=== PATIENT | female | born 1945 | race Caucasian/White ===

== ENCOUNTER 2017-01-16 23:18 | Emergency (ER) | payer BC ==
[~2017-01-16] VITALS: Ht 160 cm; Wt 93.0 kg
[~2017-01-16 23:18] MED LIST: AMLO2.5T2 PO; FLO110 INH; FLUT1DIS5; LEVO25TA7 PO; METO-442 PO; PRAV40TA PO; PRO40 PO
[2017-01-16 23:20] VITALS: BP_SYST 105
[2017-01-16] MEDS: ASPIRIN 325 MG TABLET PO ONE (23:39)
[2017-01-16 23:52] LABS: BASOPHILS % (AUTO) 0.5 % (0.0-2.0); EOSINOPHILS # (AUTO) 0.2 K/uL (0.0-0.4); EOSINOPHILS % (AUTO) 2.7 % (0.0-4.0); HEMATOCRIT 37.8 % (36-48); HEMOGLOBIN 12.9 g/dL (12.0-16.0); LYMPHOCYTES # (AUTO) 3.6 K/uL (1.0-5.5); LYMPHOCYTES % (AUTO) 40.6 % (20.5-51.5); MEAN CORPUSCULAR HEMOGLOBIN 31 pg (27-31); MEAN CORPUSCULAR HGB CONC 34 % (32-36); MEAN CORPUSCULAR VOLUME 90 fL (79.0-98.0); MONOCYTES # (AUTO) 0.6 K/uL (0.0-1.0); MONOCYTES % (AUTO) 7.1 % (1.7-9.3); NEUTROPHILS # (AUTO) 4.5 K/uL (1.8-7.7); NEUTROPHILS % (AUTO) 49.1 % (40.0-70.0); PLATELET COUNT (AUTO) 289 K/uL (130-430); RED BLOOD CELL COUNT(AUTO) 4.21 MIL/uL (4.2-6.2); RED CELL DISTRIBUTION WIDTH 12.3 % (9.0-15.0); WHITE BLOOD COUNT (AUTO) 8.9 K/uL (4.8-10.8)
[2017-01-17 00:06] LABS: ANION GAP 8 (5-15); CALCIUM 9.6 mg/dL (8.4-11.0); CHLORIDE 109 mmol/L (98-107); CREATININE 0.96 mg/dL (0.55-1.30); GLUCOSE 128 mg/dL (70-99); POTASSIUM 3.5 mmol/L (3.5-5.1); SODIUM SERUM 141 mmol/L (136-145); UREA NITROGEN, BLOOD 13 mg/dL (8-21)
[2017-01-17 00:11] LABS: ALANINE AMINOTRANSFERASE 20 U/L (12-78); ALBUMIN 3.6 g/dL (3.4-4.8); ASPARTATE AMINOTRANSFERASE 15 U/L (10-37); TOTAL BILIRUBIN 0.3 mg/dL (0.0-1.0); TOTAL PROTEIN, SERUM 6.9 g/dL (6.4-8.3)
[2017-01-17] MEDS: KETOROLAC TROMETHAMINE 60 MG/2 ML VIAL IM ONE (01:38)
[2017-01-17 01:50] VITALS: BP_SYST 108
[2017-01-17] MEDS: MAG HYDROX/AL HYDROX/SIMETH 30 ML, BELLADONNA ALKALOIDS/PHENOBARB 10 ML, LIDOCAINE VISC... PO ONE ×3 (01:59)
== END 2017-01-17 01:50 | disposition home or self-care (01) ==
LOC: SED 23:18
DX: M94.0 Chondrocostal junction syndrome [Tietze] (principal); E11.9 Type 2 diabetes mellitus without complications; I10 Essential (primary) hypertension; Z88.0 Allergy status to penicillin; Z88.5 Allergy status to narcotic agent
CPT/HCPCS: 36415; 71010; 80053; 82962; 84484; 85025; 93005; 96372; 99285; J1885

== ENCOUNTER 2017-02-14 13:26 | Outpatient (CLI) | payer OTHER | END 2017-02-14 18:58 | disposition home or self-care (01) | LOC: SRD 13:26 | PROVIDERS: ATTEND Internal Medicine | DX: M19.011 Primary osteoarthritis, right shoulder (principal); M75.21 Bicipital tendinitis, right shoulder; M65.331 Trigger finger, right middle finger; M19.041 Primary osteoarthritis, right hand | CPT/HCPCS: 73030; 73140-TC ==

== ENCOUNTER 2017-11-29 11:32 | Outpatient (CLI) | payer OTHER | END 2017-11-29 16:05 | disposition home or self-care (01) | LOC: SRD 11:32 | PROVIDERS: ATTEND Internal Medicine | DX: M47.892 Other spondylosis, cervical region (principal); M48.02 Spinal stenosis, cervical region | CPT/HCPCS: 72050-TC ==

== ENCOUNTER 2018-09-08 10:08 | Outpatient (CLI) | payer OTHER | END 2018-09-08 21:14 | disposition home or self-care (01) | LOC: SRD 10:08 | PROVIDERS: ATTEND Internal Medicine | DX: M17.0 Bilateral primary osteoarthritis of knee (principal); M19.042 Primary osteoarthritis, left hand; M19.041 Primary osteoarthritis, right hand ==

== ENCOUNTER 2019-07-13 13:43 | Outpatient (CLI) | payer OTHER | END 2019-07-13 21:02 | disposition home or self-care (01) | LOC: SRD 13:43 | PROVIDERS: ATTEND Internal Medicine | DX: M17.11 Unilateral primary osteoarthritis, right knee (principal); M19.022 Primary osteoarthritis, left elbow; M19.041 Primary osteoarthritis, right hand; M19.042 Primary osteoarthritis, left hand | CPT/HCPCS: 73564 ==

== ENCOUNTER 2020-08-04 20:36 | Emergency (ER) | payer OTHER ==
[~2020-08-04] VITALS: Ht 160 cm; Wt 99.8 kg
[2020-08-04 20:40] VITALS: BP_SYST 133
[2020-08-04] MEDS ORDERED: MULT-1200 PO (21:23)
[2020-08-04] MEDS ORDERED: ANAS1TAB51 PO (21:23)
[2020-08-04] MEDS ORDERED: LOSA50TA3 PO (21:23)
[2020-08-04] MEDS ORDERED: CYAN50008 PO (21:23)
[2020-08-04] MEDS ORDERED: CALC200T47 PO (21:23)
[2020-08-04] MEDS ORDERED: MONT10TA27 PO (21:23)
[2020-08-04] MEDS ORDERED: ASA81 PO (21:23)
[2020-08-04] MEDS ORDERED: ACETAMINOPHEN 325 MG TABLET PO ONE (21:30)
[2020-08-04 21:31] VITALS: BP_SYST 133
== END 2020-08-04 21:31 | disposition home or self-care (01) ==
LOC: SED 20:36
DX: M25.561 Pain in right knee (principal); I10 Essential (primary) hypertension; E03.9 Hypothyroidism, unspecified; J45.909 Unspecified asthma, uncomplicated; E78.5 Hyperlipidemia, unspecified; Z86.73 Personal history of transient ischemic attack (TIA), and cerebral infarction without residual deficits; Z85.3 Personal history of malignant neoplasm of breast; Z79.899 Other long term (current) drug therapy; Z79.82 Long term (current) use of aspirin; Z88.5 Allergy status to narcotic agent
CPT/HCPCS: 99283

== ENCOUNTER 2021-05-12 12:03 | Emergency (ER) | payer OTHER, SELFPAY ==
[~2021-05-12] VITALS: Ht 160 cm; Wt 95.3 kg
[2021-05-12 12:03] VITALS: BP_SYST 124
[~2021-05-12 12:03] MED LIST changes: +ALBMDI INH; +ALBU2.5V7 INH; +AMOX-426 PO; +ANAS1TAB51 PO; +ASA81 PO; +CALC200T47 PO; +CYAN50008 PO; -FLO110 INH; -FLUT1DIS5; +LOSA50TA3 PO; -METO-442 PO; +MONT10TA33 PO; +MULT-1200 PO
[2021-05-12] MEDS ORDERED: NAPR-690 PO (14:31)
[2021-05-12 14:39] VITALS: BP_SYST 124
== END 2021-05-12 14:40 | disposition home or self-care (01) ==
LOC: SED 12:03
DX: S20.211A Contusion of right front wall of thorax, initial encounter (principal); I10 Essential (primary) hypertension; E03.9 Hypothyroidism, unspecified; J44.9 Chronic obstructive pulmonary disease, unspecified; Z88.5 Allergy status to narcotic agent; Z88.6 Allergy status to analgesic agent; Z79.899 Other long term (current) drug therapy; W18.39XA Other fall on same level, initial encounter; Y93.89 Activity, other specified; Y92.89 Other specified places as the place of occurrence of the external cause; Y99.8 Other external cause status
CPT/HCPCS: 71045; 99283

== ENCOUNTER 2022-05-20 09:03 | Emergency (ER) | payer OTHER ==
[~2022-05-20] VITALS: Ht 160 cm; Wt 87.5 kg
[~2022-05-20 09:03] MED LIST changes: -CYAN50008 PO; +CYAN50009 PO; +MONT-40 PO; -MONT10TA33 PO; +NAPR-690 PO
[2022-05-20 09:22] VITALS: BP_SYST 112
--- NOTE | 2022-05-20 09:32 | NUR ---
Patient to ER bed 7 to gown for evaluation. Side rails up. Report given to vivian.
[2022-05-20] MEDS ORDERED: SULFAMETHOXAZOLE/TRIMETHOPR DS 1 TABLET PO ONE (09:45)
[2022-05-20] MEDS ORDERED: MORPHINE 4 MG INJ. 4 MG/ML VIAL IM ONE (09:45)
[2022-05-20] MEDS ORDERED: ONDANSETRON 4 MG ODT TAB PO ONE ×2 (09:45→11:00)
[2022-05-20] MEDS ORDERED: HYDR-3917 PO (10:40)
[2022-05-20] MEDS ORDERED: SULF1TAB48 PO (10:40)
[2022-05-20] MEDS ORDERED: MAG HYDROX/AL HYDROX/SIMETH 30 ML, DICYCLOMINE HCL 20 MG, LIDOCAINE VISCOUS 2% 15ML (PO... PO ONE ×3 (10:45)
[2022-05-20] MEDS ORDERED: ONDANSETRON 4 MG ODT TAB ONE (11:04)
[2022-05-20 11:14] VITALS: BP_SYST 139
== END 2022-05-20 11:15 | disposition home or self-care (01) ==
LOC: SED 09:03
DX: L03.115 Cellulitis of right lower limb (principal); R22.41 Localized swelling, mass and lump, right lower limb; J44.1 Chronic obstructive pulmonary disease with (acute) exacerbation; I10 Essential (primary) hypertension; E78.5 Hyperlipidemia, unspecified; Z88.5 Allergy status to narcotic agent; Z88.6 Allergy status to analgesic agent; Z79.899 Other long term (current) drug therapy
CPT/HCPCS: 99284; 73630; 96372; Q0162; J2001; J2270

== ENCOUNTER 2022-11-08 10:31 | Emergency (ER) | payer OTHER ==
[~2022-11-08] VITALS: Ht 160 cm; Wt 89.8 kg
[~2022-11-08 10:31] MED LIST changes: +HYDR-3917 PO; +SULF1TAB48 PO
[2022-11-08 10:52] VITALS: BP_SYST 150
[2022-11-08 12:04] LABS: BASOPHILS % (AUTO) 0.6 % (0.0-2.0); EOSINOPHILS # (AUTO) 0.2 K/uL (0.0-0.4); EOSINOPHILS % (AUTO) 3.5 % (0.0-4.0); HEMATOCRIT 36.9 % (36-48); HEMOGLOBIN 12.8 g/dL (12.0-16.0); LYMPHOCYTES # (AUTO) 1.4 K/uL (1.0-5.5); LYMPHOCYTES % (AUTO) 26.5 % (20.5-51.5); MEAN CORPUSCULAR HEMOGLOBIN 32 pg (27-31); MEAN CORPUSCULAR HGB CONC 35 % (32-36); MEAN CORPUSCULAR VOLUME 92 fL (79.0-98.0); MONOCYTES # (AUTO) 0.4 K/uL (0.0-1.0); MONOCYTES % (AUTO) 6.9 % (1.7-9.3); NEUTROPHILS # (AUTO) 3.2 K/uL (1.8-7.7); NEUTROPHILS % (AUTO) 62.5 % (40.0-70.0); PLATELET COUNT (AUTO) 246 K/uL (130-430); RED BLOOD CELL COUNT(AUTO) 3.99 MIL/uL (4.2-6.2); RED CELL DISTRIBUTION WIDTH 13.5 % (9.0-15.0); WHITE BLOOD COUNT (AUTO) 5.2 K/uL (4.8-10.8)
[2022-11-08 12:15] LABS: ANION GAP 6 (5-15); CALCIUM 9.4 mg/dL (8.4-11.0); CHLORIDE 106 mmol/L (98-107); CREATININE 0.68 mg/dL (0.55-1.30); GLUCOSE 106 mg/dL (70-99); UREA NITROGEN, BLOOD 12 mg/dL (8-21)
[2022-11-08 12:20] LABS: ALANINE AMINOTRANSFERASE 15 U/L (12-78); ALBUMIN 3.1 g/dL (3.4-4.8); ASPARTATE AMINOTRANSFERASE 11 U/L (10-37); TOTAL BILIRUBIN 0.3 mg/dL (0.0-1.0)
[2022-11-08] MEDS ORDERED: KETOROLAC TROMETHAMINE 60 MG/2 ML VIAL IM ONE (13:15)
[2022-11-08 14:12] VITALS: BP_SYST 150
== END 2022-11-08 14:11 | disposition home or self-care (01) ==
LOC: SED 10:31
DX: N60.01 Solitary cyst of right breast (principal); R22.31 Localized swelling, mass and lump, right upper limb; N64.4 Mastodynia; I10 Essential (primary) hypertension; E78.5 Hyperlipidemia, unspecified; J45.909 Unspecified asthma, uncomplicated; Z85.3 Personal history of malignant neoplasm of breast; Z88.5 Allergy status to narcotic agent; Z88.6 Allergy status to analgesic agent; Z79.899 Other long term (current) drug therapy
CPT/HCPCS: 99285; 93971; 71045; 80053; 85025; 36415; 73030; 76642; J1885

== ENCOUNTER 2023-09-17 12:05 | Emergency (ER) | payer OTHER ==
[~2023-09-17] VITALS: Ht 160 cm; Wt 88.0 kg
[~2023-09-17 12:05] MED LIST changes: -CALC200T47 PO; +CALC200T56 PO; +LOSA-413 PO; -LOSA50TA3 PO
[2023-09-17 12:18] VITALS: BP_SYST 123; PULSE 82; RESP 22; TEMP 98.3; O2SAT 97
[2023-09-17 12:55] LABS: COVID19 ANTIGEN SOFIA FIA NEGATIVE (NEGATIVE)
[2023-09-17 12:56] LABS: INFLUENZA TYPE A Negative (NEGATIVE); INFLUENZA TYPE B NEGATIVE (NEGATIVE)
[2023-09-17] MEDS ORDERED: predniSONE 20 MG TABLET PO ONE (15:15)
[2023-09-17] MEDS ORDERED: GUAI5SYR PO (15:21)
[2023-09-17] MEDS ORDERED: PRED20TA PO (15:21)
[2023-09-17 15:32] VITALS: BP_SYST 123; PULSE 82; RESP 22; TEMP 98.3; O2SAT 97
== END 2023-09-17 15:33 | disposition home or self-care (01) ==
LOC: SED 12:05
DX: J20.8 Acute bronchitis due to other specified organisms (principal); R05.9 Cough, unspecified; R09.82 Postnasal drip; J45.909 Unspecified asthma, uncomplicated; I10 Essential (primary) hypertension; Z88.5 Allergy status to narcotic agent; Z88.6 Allergy status to analgesic agent; Z85.3 Personal history of malignant neoplasm of breast; Z79.899 Other long term (current) drug therapy; Z20.822 Contact with and (suspected) exposure to COVID-19
CPT/HCPCS: 99284; 71045; 87426; 36415; 87804 ×2; J7512

== ENCOUNTER 2023-11-29 11:49 | Outpatient (CLI) | payer OTHER ==
[~2023-11-29 11:49] MED LIST changes: +GUAI5SYR PO; +PRED20TA PO
== END 2023-11-29 20:24 | disposition home or self-care (01) ==
LOC: SRD 11:49
PROVIDERS: ATTEND Internal Medicine
DX: M25.531 Pain in right wrist (principal); M25.631 Stiffness of right wrist, not elsewhere classified; M25.431 Effusion, right wrist; M85.88 Other specified disorders of bone density and structure, other site